=== PATIENT | female | born 1930 | race Caucasian/White ===

== ENCOUNTER 2017-04-26 07:55 | Observation (INO) | payer MEDICARE, OTHER ==
[~2017-04-26] VITALS: Ht 154.9 cm; Wt 80.2 kg
[~2017-04-26 07:55] MED LIST: BENZTROPINE2 MG PO; BYSTOLIC5 MG PO; COGENTIN 1MG1 MG/TAB PO; COUMADIN2.5 MG PO; COUMADIN5 MG PO; COZAAR PO; COZAAR100 MG PO; LASIX 80MG TABL80 MG PO; MULTAQ400 MG PO; SINEMET 10/101 UDTAB PO; ZOCOR 20MG20 MG PO; ZYLOPRIM 300MG300 MG PO
[2017-04-26] MEDS ORDERED: ZEBETA 5MG5 MG PO (08:35)
[2017-04-26] MEDS ORDERED: IRON TABLETS325 MG PO (08:37)
[2017-04-26] MEDS ORDERED: DEMADEX100 MG PO (08:40)
[2017-04-26] MEDS ORDERED: VITAMIN B12 681 TAB PO (08:41)
[2017-04-26] MEDS ORDERED: COUMADIN 5MG5 MG/TAB PO (08:43)
[2017-04-26] MEDS ORDERED: VITAMIN K0.1 MG PO (08:43)
[2017-04-26 09:15] LABS: BASO # 0.1 (0.0-0.2); BASO % 0.6 % (0.0-2.0); EOS % 0.1 % (0-4.0); GRAN # 7.9 (1.4-6.5); GRAN % 89.7 % (42.2-75.2); LYMPH # 0.5 (1.2-3.4); LYMPH % 5.6 % (20.0-51.0); MEAN CELL VOLUME 106 fl (80.0-100.0); MEAN CORPUSCULAR HGB CONC 33 g/dl (33.0-37.0); MEAN PLATELET VOLUME 11.2 fl (7.4-10.4); MONO # 0.3 (0.1-0.6); MONO % 3.4 % (1.7-9.3); PLATELET COUNT 168 K/mm3 (130-400); RED BLOOD COUNT 2.98 M/mm3 (4.10-5.30); REDCELL DISTRIBUTION WIDTH-CV 13.3 % (11.5-14.5); WHITE BLOOD COUNT 8.8 K/mm3 (4.8-10.8)
[2017-04-26 09:16] LABS: HEMATOCRIT 31.5 % (37.0-47.0); HEMOGLOBIN 10.4 g/dl (12.5-16.0); MEAN CORPUSCULAR HEMOGLOBIN 35 pg (27.0-31.0)
[2017-04-26 09:30] LABS: ADJUSTED CALCIUM 9.9 mg/dL (8.4-10.2); ALBUMIN 3.8 gm/dL (3.5-5.0); BILIRUBIN,TOTAL 1.1 mg/dL (0.0-1.0); CALCIUM 9.7 mg/dL (8.4-10.2); CREATININE, serum 0.97 mg/dL (0.52-1.25); POTASSIUM 4.6 mmol/L (3.4-5.0); TOTAL PROTEIN 7.4 gm/dL (6.4-8.2)
[2017-04-26 10:07] LABS: INR 8.6 (0.8-3.0); PROTHROMBIN TIME 104.9 SECONDS (9.7-12.8)
[2017-04-26] MEDS ORDERED: ZYLOPRIM 100MG100 MG PO (12:23)
[2017-04-26] MEDS ORDERED: VITAMIN C500 MG PO (12:29)
[2017-04-26 12:32] VITALS: BP 143/50; PULSE 65; TEMP 98.1
[2017-04-26 16:09] VITALS: BP 132/42; PULSE 60; TEMP 98.4
[2017-04-26 19:45] VITALS: BP 152/48; PULSE 61; TEMP 98.5
[2017-04-26 23:06] VITALS: BP 141/33; PULSE 59; TEMP 98.6
[2017-04-27 03:23] VITALS: BP 151/60; PULSE 60; TEMP 98.4
[2017-04-27 07:14] LABS: BASO % 0.2 % (0.0-2.0); EOS % 0.3 % (0-4.0); GRAN # 8.6 (1.4-6.5); GRAN % 84.9 % (42.2-75.2); LYMPH # 0.7 (1.2-3.4); LYMPH % 6.7 % (20.0-51.0); MEAN CELL VOLUME 105 fl (80.0-100.0); MEAN CORPUSCULAR HGB CONC 33 g/dl (33.0-37.0); MEAN PLATELET VOLUME 11.2 fl (7.4-10.4); MONO # 0.7 (0.1-0.6); MONO % 7.2 % (1.7-9.3); PLATELET COUNT 154 K/mm3 (130-400); RED BLOOD COUNT 2.47 M/mm3 (4.10-5.30); REDCELL DISTRIBUTION WIDTH-CV 13.5 % (11.5-14.5); WHITE BLOOD COUNT 10.1 K/mm3 (4.8-10.8)
[2017-04-27 07:17] LABS: CALCIUM 9.7 mg/dL (8.4-10.2); CREATININE, serum 0.7 mg/dL (0.52-1.25); POTASSIUM 4.6 mmol/L (3.4-5.0)
[2017-04-27 07:20] LABS: HEMOGLOBIN 8.6 g/dl (12.5-16.0); MEAN CORPUSCULAR HEMOGLOBIN 35 pg (27.0-31.0)
[2017-04-27 07:43] VITALS: BP 128/45; PULSE 64; TEMP 97.6
[2017-04-27 07:48] LABS: INR 2.6 (0.8-3.0); PROTHROMBIN TIME 29.9 SECONDS (9.7-12.8)
[2017-04-27 08:09] LABS: PH 5 (5-8); SQUAMOUS EPITHELIAL 0-2 /hpf; URINE APPEARANCE Clear; URINE BACTERIA None Seen /hpf; URINE BILIRUBIN Negative (NEGATIVE); URINE BLOOD Negative (NEGATIVE); URINE COLOR Yellow; URINE GLUCOSE Negative (NEGATIVE); URINE KETONE Negative (NEGATIVE); URINE RBC 0-2 /hpf; URINE UROBILINOGEN Negative (NEGATIVE)
[2017-04-27 11:15] VITALS: BP 127/60; PULSE 62; TEMP 98.6
[2017-04-27 13:57] LABS: HEMATOCRIT 24.9 % (37.0-47.0); HEMOGLOBIN 8.3 g/dl (12.5-16.0)
[2017-04-27] MEDS ORDERED: TYLENOL 500MG500 MG PO (14:06)
== END 2017-04-27 15:48 | disposition home health service (06) ==
LOC: COL.ER 07:55 → MEDICAL 11:28
PROVIDERS: Emergency Medicine; Family Medicine
DX: R58 Hemorrhage, not elsewhere classified (principal); D64.9 Anemia, unspecified; I48.91 Unspecified atrial fibrillation; G20 Parkinson's disease; I12.9 Hypertensive chronic kidney disease with stage 1 through stage 4 chronic kidney disease, or unspecified chronic kidney disease; N18.3 Chronic kidney disease, stage 3 (moderate); Z95.0 Presence of cardiac pacemaker; Z79.01 Long term (current) use of anticoagulants; Z81.8 Family history of other mental and behavioral disorders
CPT/HCPCS: G0378; G8978-GP; G8979-GP; J7050